=== PATIENT | female | born 2000 | race Caucasian/White ===

== ENCOUNTER 2020-08-29 11:10 | Day surgery (SDC) | payer BC ==
[2020-08-29] MEDS ORDERED: Sensorcaine 0.25% 10 ML ONE ×2 (11:45→12:23)
[2020-08-29] MEDS ORDERED: CEFAZOLIN 2 GM-D5W BAG** 2 GM/50 ML ML IV SCH (12:00)
[2020-08-29] MEDS ORDERED: Lactated Ringers 1,000 ML IV SCH (12:00)
[2020-08-29] MEDS ORDERED: MEFOXIN 2 GM PREMIX** 2 GM/50 ML ML IV SCH (12:00)
[2020-08-29] MEDS ORDERED: MEFOXIN 2 GM PREMIX** 2 GM/50 ML ML IV ONE (12:01)
[2020-08-29] MEDS ORDERED: Lactated Ringers 1,000 ML IV ONE ×2 (12:01→12:24)
[2020-08-29] MEDS ORDERED: Decadron 4 MG INJ ONE (12:28)
[2020-08-29] MEDS ORDERED: Zemuron 100 MG/10 ML ONE (12:28)
[2020-08-29] MEDS ORDERED: SUBLIMAZE 100 MCG/2 ML ONE ×2 (12:28→14:05)
[2020-08-29] MEDS ORDERED: Zofran 4 MG/2 ML VIAL ONE ×2 (12:28→14:04)
[2020-08-29] MEDS ORDERED: DIPRIVAN 200 MG/20 ML IV ONE (12:28)
[2020-08-29] MEDS ORDERED: BRIDION 200MG/2ML IV ONE (12:28)
[2020-08-29] MEDS ORDERED: Xylocaine-Mpf 2% 5 Ml Vial ONE (12:28)
[2020-08-29] MEDS ORDERED: TORAdol 30 mg Injection ONE (12:28)
[2020-08-29] MEDS ORDERED: Hydromorphone 1 mg/ml Injection ONE (14:05)
[2020-08-29 15:46] VITALS: O2SAT 99
[2020-08-29 15:50] VITALS: BP 142/74; PULSE 92
--- NOTE | 2020-09-01 07:56 | OP ---
SURGERY DATE/TIME: 08/29/2020 1252 PREOPERATIVE DIAGNOSIS: Symptomatic cholelithiasis. POSTOPERATIVE DIAGNOSIS: Symptomatic cholelithiasis with cholesterolosis. PROCEDURE: Laparoscopic cholecystectomy. SURGEON: Dr. Jc Knapp. ANESTHESIA: General. COMPLICATIONS: None. CONDITION: Stable. INDICATIONS: A patient with symptomatic gallbladder disease. DESCRIPTION OF PROCEDURE AND FINDINGS: Taken to surgery. General anesthetic, routine prep and drape. Veress needle inserted. Opening pressure of 1, insufflating pressure 14. Four - 5's. Good visualization. Cystic duct defined. Cystic artery defined. Both structures triply clipped and transected. Clips noted across and well approximated. Gallbladder rolled out of gallbladder fossa. The gallbladder delivered through the umbilical port with slight widening intact. Hole closure device was used with 0 Vicryl. Skin closed with 4-0 Vicryl and Steri-Strips. The patient tolerated the procedure satisfactorily.
== END 2020-08-29 15:45 | disposition home or self-care (01) ==
LOC: SDC 11:10
PROVIDERS: ATTEND Surgery
DX: K80.20 Calculus of gallbladder without cholecystitis without obstruction (principal); E11.9 Type 2 diabetes mellitus without complications; G40.909 Epilepsy, unspecified, not intractable, without status epilepticus; I11.9 Hypertensive heart disease without heart failure; Z79.899 Other long term (current) drug therapy
CPT/HCPCS: 84703; J0694; J1100; J1170; J1885; J2405; J2704; J3010